=== PATIENT | male | born 2005 | race Caucasian/White ===

== ENCOUNTER 2025-01-26 18:48 | Emergency (ER) | payer BC, SELFPAY ==
[2025-01-26 18:59] VITALS: BP 132/78; PULSE 85; RESP 18; TEMP 37.1; O2SAT 95
--- NOTE | 2025-01-26 19:00 | DI.RAD_ITS ---
Exam(s) XR CHEST 2V PA LATERAL EXAM: XR CHEST 2V PA LATERAL CLINICAL HISTORY: black mold exposure, cough. TECHNIQUE: 2D digital imaging was performed. COMPARISON: No exams were available for comparison FINDINGS: 2 views: Heart size is normal. The mediastinum is not widened. Lungs are clear. No infiltrates nor pleural effusions. IMPRESSION: No acute pulmonary findings. DATA REPOSITORY: RADIATION DOSE DELIVERED:
--- NOTE | 2025-01-26 19:00 | RT.EKG_ITS ---
APPROVED REPORT Exam: Resting ECG Reason for Exam: chest pressure Patient Location: E HR:79 bpm ECG Measurements Heart Rate 79 AXIS AL 153 P 50 QRSd 102 QRS 79 QT 365 T 46 QTc 419 Conclusion Sinus rhythm...normal P axis, V-rate 60- 99 Elevated J point w/ upslope, benign early repol in a 19 yo. No STEMI
[2025-01-26 19:18] VITALS: BP 132/78; PULSE 85; RESP 18; TEMP 37.1; O2SAT 95
--- NOTE | 2025-01-26 19:28 | ED.GENADUL_ITS ---
Discharge Plan Disposition Patient Disposition: Home Discharge Details Clinical Impression: COVID-19 Primary Care Provider: Tyron Shaw ED Provider: Ana María Dow Discharge Instructions Additional Instructions: You are positive for COVID-19, which is likely the cause of your symptoms. There is no sign of pneumonia on chest x-ray. Please stay well hydrated, drinking plenty of fluids throughout the day. You may use ibuprofen 600 mg every 8 hours and tylenol 650 mg every 8 hours as needed for fever /chills or body aches. Get plenty of rest. Practice good handwashing and wear a mask in public if you are coughing to avoid spreading illness to others. Return to emergency care if you develop difficulty breathing, chest pains, worsening of cough or fever after initial improvement, or if you are very worried and need to be rechecked again immediately. I do recommend that you use protection every time you are exposed to black mold in the future to prevent reactions to it. Referrals: Tyron Shaw [Primary Care Provider, Medicine] [facility] General Date/Time Provider Initiated Documentation: 01/26/25 19:07 . HPI Narrative: Andrews is a 19-year-old male who presents to the emergency department today for evaluation of fever, chest discomfort, cough productive of mucus, and posttussive emesis x 2 days. Reports chest pain, dyspnea, productive cough, fever at night (up to 102 last night), alternating hot and cold sweats in the morning morning. Symptoms began two days ago after black mold exposure at work. Experienced dizziness at work today, especially when bending down. Coughing up mucus and nasal congestion for two days. Describes chest tightness and wheezing. Vomited once due to coughing, no abdominal pain. Had diarrhea today, no blood. Normal urination, maintaining hydration. Difficulty eating last night, managed only a few bites. No recent illnesses among close contacts. No history of asthma. Vapes regularly but trying to quit. General Stated Complaint: RespSymp JOHN: 3 Exam Narrative Exam Narrative: General Appearance: Normal. Alert and oriented, in no acute distress Vital signs: Within normal limits. HEENT: Mucous membranes, no oropharyngeal erythema/exudate or tonsillar hypertrophy. Respiratory: Easy work of breathing, lungs clear to auscultation bilaterally. Cardiac: Regular rate and rhythm, normal heart sounds Skin: Warm and dry, no rash. Psychiatric: Normal. Course Vital Signs Vital signs: Vital Signs Temperature 37.1 C 01/26/25 18:59 Pulse 85 01/26/25 18:59 Respiratory Rate 18 01/26/25 18:59 Blood Pressure 132/78 01/26/25 18:59 Pulse Oximetry 95 01/26/25 18:59 Temperature 37.1 C 01/26/25 19:18 Temperature Source Oral 01/26/25 19:18 Pulse 85 01/26/25 19:18 Respiratory Rate 18 01/26/25 19:18 Respiratory Depth Normal 01/26/25 19:27 Blood Pressure 132/78 01/26/25 19:18 Blood Pressure Position Sitting 01/26/25 19:18 Pulse Oximetry 95 01/26/25 19:18 Oxygen Delivery Method Room Air 01/26/25 19:18 Oxygen Flow Rate 0 01/26/25 18:59 Pain Level 3 01/26/25 18:59 Medical Decision Making Initial Assessment: 19-year-old male with black mold exposure presenting with chest pain, dyspnea, productive cough, fever, nasal congestion, sore throat, dizziness, and diarrhea. Differential Diagnosis includes but is not limited to: Pneumonia, black mold reaction, viral illness such as COVID-19 or flu. Patient does not have any vital signs abnormalities [place] for sepsis or other systemic illness requiring emergent blood work at this time. ED Course: - Chest x-ray - COVID-19 test - Influenza test I independently interpreted the following tests: COVID-19 positive. No obvious abnormalities noted on chest x-ray, this was confirmed by radiologist. Final Assessment: Chest x-ray, COVID-19, and influenza tests performed. Suspected pneumonia or viral illness. Symptom management with Tylenol, ibuprofen, Tessalon Perles, Mucinex DM, and steam inhalation recommended. Clinical Impression: - Covid 19 Discharge instructions provided to patient, including symptomatic management and red flags indicate need for return to emergency care. Disposition: - Follow-Up: Appointment with primary care doctor at [facility] Patient Education: Reduce vaping, Tylenol, ibuprofen, Tessalon Perles, Mucinex DM, steam inhalation, hydration Patient consented to the use of [facility] Imaging Data Radiologic Study: Radiologist's impression: Exam(s) XR CHEST 2V PA LATERAL EXAM: XR CHEST 2V PA LATERAL CLINICAL HISTORY: black mold exposure, cough. TECHNIQUE: 2D digital imaging was performed. COMPARISON: No exams were available for comparison FINDINGS: 2 views: Heart size is normal. The mediastinum is not widened. Lungs are clear. No infiltrates nor pleural effusions. IMPRESSION: No acute pulmonary findings. PFSH All Active Problems (Updated 01/26/25 @ 20:47 by Ana María Tello) COVID-19 (Acute) Social History Smoking/Tobacco Use Status: Current every day Tobacco Type: e-cigarettes Smoking risk assessment performed?: Yes Drug use: Never Substance use type: does not use Do you feel safe at home: Yes Do you feel safe in your relationship?: Yes
[2025-01-26 20:34] VITALS: BP 137/78; PULSE 77; RESP 16; O2SAT 100
--- NOTE | 2025-01-26 20:34 | DI.VRAD_ITS ---
PROCEDURE INFORMATION: Exam: XR Chest Exam date and time: 01/26/2025 7:28 PM Age: 19 years old Clinical indication: Black mold exposure, cough TECHNIQUE: Imaging protocol: Radiologic exam of the chest. Views: 2 views. COMPARISON: No relevant prior studies available. FINDINGS: Lungs: The lungs are clear. No consolidative radiopacities. Pleural spaces: No pleural effusion. No pneumothorax. Heart/Mediastinum: The heart is normal size. Bones/joints: Unremarkable. IMPRESSION: No acute cardiopulmonary findings. Dictated and Authenticated by: Celi Spence MD. Orderin Britta Gotti MD
[2025-01-26 20:41] LABS: RSV PCR Negative (Negative)
[2025-01-26 20:44] LABS: COVID-19 PCR Positive (Negative)
[2025-01-26] MEDS: Benzonatate 100 MG CAP PO (20:57)
== END 2025-01-26 21:03 | disposition home or self-care (01) ==
PROVIDERS: Emergency Provider Nurse Practitioner Family; PCP Family Medicine
DX: U07.1 COVID-19 (principal); Z11.52 Encounter for screening for COVID-19
CPT/HCPCS: 99283 ×2; 87637; 93005; 71046; 93010